=== PATIENT | male | born 1935 | race Two or more races ===

== ENCOUNTER 2021-08-15 16:14 | Inpatient (IN) | payer OTHER ==
[~2021-08-15] VITALS: Ht 170.2 cm; Wt 68.7 kg
[2021-08-15] MEDS ORDERED: ACETAMINOPHEN 500 MG TAB PO ONE (17:15)
[2021-08-15 17:23] LABS: Hematocrit 29.1 % (41.0-53.0); Hemoglobin 9.9 g/dL (13.5-17.5); Mean Corpuscular Volume 88.4 fL (80.0-100.0); Red Cell Distribution Width 15.9 % (11.8-14.3); White Blood Cell 5.9 10^3/uL (4.4-10.8)
[2021-08-15 17:29] LABS: Basophils % (manual) 0 (0.0-2.0); Blast Cells 0; Eosinophils % (manual) 0 (0-7); Myelocytes % 0; Promyelocytes % 0
[2021-08-15 17:37] LABS: INR 1.57 (0.9-1.15); Partial Thromboplastin Time 49.3 sec (23.6-33.0)
[2021-08-15 17:52] LABS: Albumin 2.6 g/dL (3.4-5.0); Calcium 8.6 mg/dL (8.5-10.1); Potassium 4.5 mmol/L (3.5-5.1)
[2021-08-15 17:55] LABS: BUN/Creatinine Ratio 26.7; Magnesium 2.2 mg/dL (1.6-2.6)
[2021-08-15 17:59] LABS: Bilirubin, Total 0.4 mg/dL (0.2-1.0); Total Protein 6.5 g/dL (6.4-8.2)
[2021-08-15] MEDS ORDERED: MORPHINE SULFATE INJECTION 2 MG/ML SYRG IV PRN ×2 (18:15→22:15)
[2021-08-15] MEDS ORDERED: NITROGLYCERIN 0.4 MG SL TAB SL PRN (18:15)
[2021-08-15 19:03] LABS: Band Neutrophils % (manual) 3; Lymphocytes % (manual) 30 (10.0-50.0); Metamyelocytes % 1; Monocytes % (manual) 8 (0-12); Reactive Lymphocytes 10
[2021-08-15] MEDS ORDERED: PANTOPRAZOLE 40 MG/10 ML VIAL INJ IV ONE (22:15)
[2021-08-15] MEDS ORDERED: TEMAZEPAM 15 MG CAP PO PRN (22:15)
[2021-08-15] MEDS ORDERED: DOCUSATE SOD 100 MG CAP PO PRN (22:15)
[2021-08-15] MEDS ORDERED: ONDANSETRON HCL 4 MG/2 ML VIAL IV PRN (22:15)
[2021-08-15] MEDS ORDERED: ACETAMINOPHEN 325 MG TAB PO PRN (22:15)
[2021-08-15] MEDS ORDERED: cefTRIAXone 1GM/50ML D5W 50 ML IV ONE (22:15)
[2021-08-15] MEDS ORDERED: hydrALAZINE HCL 20 MG/ML VL IV PRN (22:15)
[2021-08-15] MEDS ORDERED: HYDROcodone-ACET 5/325MG TAB PO PRN (22:15)
[2021-08-15] MEDS ORDERED: IOHEXOL 350 MG/ML 100ML IJ ONE (22:25)
[2021-08-15] MEDS: SODIUM CHLORIDE 0.9% 1,000 ML IV SCH (23:00)
[2021-08-16 00:30] VITALS: BP 107/67
[2021-08-16 05:00] VITALS: BP 132/57
[2021-08-16 08:17] LABS: Hematocrit 29.6 % (41.0-53.0); Mean Corpuscular Hemoglobin 29.9 pg (28.0-32.0); Mean Corpuscular Hgb Conc. 33.9 g/dL (32.0-36.0); Mean Corpuscular Volume 88.2 fL (80.0-100.0); Red Blood Cells 3.35 10^6/uL (4.5-5.90); Red Cell Distribution Width 16.6 % (11.8-14.3); White Blood Cell 4.3 10^3/uL (4.4-10.8)
[2021-08-16 08:36] VITALS: BP 133/63
[2021-08-16 08:44] LABS: INR 1.54 (0.9-1.15)
[2021-08-16 08:48] LABS: Basophils % (manual) 0 (0.0-2.0); Blast Cells 0; Eosinophils % (manual) 0 (0-7); Metamyelocytes % 0; Myelocytes % 0; Promyelocytes % 0
[2021-08-16 09:06] LABS: Albumin 2.4 g/dL (3.4-5.0); BUN/Creatinine Ratio 25.7; Bilirubin, Total 0.5 mg/dL (0.2-1.0); CRP High Sensitivity 12.3 mg/dL (< 0.3); Calcium 8.2 mg/dL (8.5-10.1); Magnesium 2.2 mg/dL (1.6-2.6); Phosphorus 2.3 mg/dL (2.5-4.90); Total Protein 6.6 g/dL (6.4-8.2); Uric Acid 4.4 mg/dL (3.5-7.2)
[2021-08-16 09:12] LABS: Thyroid Stimulating Hormone 0.41 uIU/mL (0.358-3.74)
[2021-08-16 09:26] LABS: Urine Bacteria NONE SEEN /hpf (None Seen); Urine Blood 1+ /uL (Negative); Urine Mucus FEW (None Seen); Urine WBC <1 /hpf (0 - 3)
[2021-08-16 09:31] LABS: Alcohol, Urine < 3.0 mg/dL (0-10); Amphetamine Screen, Urine NEGATIVE (NEGATIVE); Barbiturate Scree,Urine NEGATIVE (NEGATIVE); Benzodiazephine Screen, Urine NEGATIVE (NEGATIVE); Cannabinoid Screen, Urine NEGATIVE (NEGATIVE); Cocaine Screen, Urine NEGATIVE (NEGATIVE); Opiate Scree,Urine NEGATIVE (NEGATIVE); Phencyclidine Screen, Urine NEGATIVE (NEGATIVE); Protein, Urine 47.5 mg/dL (0.0-11.9)
[2021-08-16] MEDS: metroNIDAZOLE 500MG/100ML 100 ML IV SCH ×2 (09:39→17:21)
[2021-08-16] MEDS ORDERED: PANTOPRAZOLE 40 MG/10 ML VIAL INJ IV SCH (10:00)
[2021-08-16] MEDS ORDERED: ENOXAPARIN SOD 40 MG/0.4 ML SYRINGE SC SCH (10:00)
[2021-08-16 10:58] LABS: Band Neutrophils % (manual) 31; Lymphocytes % (manual) 26 (10.0-50.0); Monocytes % (manual) 14 (0-12); Reactive Lymphocytes 5
[2021-08-16 11:54] VITALS: BP 133/59
[2021-08-16] MEDS: SODIUM CHLORIDE 0.9% 1,000 ML IV SCH (14:55)
[2021-08-16 15:24] LABS: Magnesium 2.1 mg/dL (1.6-2.6); Phosphorus 1.9 mg/dL (2.5-4.90)
[2021-08-16 17:00] VITALS: BP 106/66
[2021-08-16] MEDS: cefTRIAXone 1GM/50ML D5W 50 ML IV SCH (21:21)
[2021-08-16 22:00] VITALS: BP 95/40
[2021-08-17] MEDS: metroNIDAZOLE 500MG/100ML 100 ML IV SCH ×3 (01:45→16:29)
[2021-08-17 05:00] VITALS: BP 140/64
[2021-08-17] MEDS: fentaNYL CITRATE 100 MCG/2 ML VL ONE ×2 (08:15→08:20)
[2021-08-17] MEDS: MIDAZOLAM HCL 5 MG/ML-1ML VIAL ONE ×2 (08:15→08:22)
[2021-08-17 08:30] VITALS: BP 130/59
[2021-08-17] MEDS ORDERED: SODIUM CHLORIDE LOCK 10 ML ONE (09:04)
[2021-08-17] MEDS ORDERED: LIDOCAINE VISCOUS 2% 15ML UD ONE (09:04)
[2021-08-17] MEDS ORDERED: diphenhdrAMINE HCL 50 MG/1 ML VL ONE (09:05)
[2021-08-17] MEDS: SODIUM CHLORIDE 0.9% 1,000 ML IV SCH (09:20)
[2021-08-17] MEDS: PANTOPRAZOLE 40 MG TAB PO SCH ×2 (09:21→22:09)
[2021-08-17] MEDS: SUCRALFATE 1 GM/10 ML ORAL SUSP PO SCH ×3 (11:41→22:08)
[2021-08-17 12:30] VITALS: BP 169/55
[2021-08-17 16:30] VITALS: BP 119/55
[2021-08-17 22:00] VITALS: BP 129/59
[2021-08-17] MEDS: cefTRIAXone 1GM/50ML D5W 50 ML IV SCH (22:08)
[2021-08-18] MEDS: SODIUM CHLORIDE 0.9% 1,000 ML IV SCH (00:15)
[2021-08-18] MEDS: metroNIDAZOLE 500MG/100ML 100 ML IV SCH (00:25)
[2021-08-18 05:00] VITALS: BP 120/45
[2021-08-18] MEDS: SUCRALFATE 1 GM/10 ML ORAL SUSP PO SCH ×2 (05:56→11:30)
[2021-08-18 08:37] VITALS: BP 124/65
[2021-08-18] MEDS: PANTOPRAZOLE 40 MG TAB PO SCH (10:00)
[2021-08-18 10:15] VITALS: BP 136/67
[2021-08-18 13:00] VITALS: BP 127/66
[2021-08-18] MEDS ORDERED: SUCR1SUS10 PO (13:09)
[2021-08-18] MEDS ORDERED: PANT40T PO (13:09)
[2021-08-18 14:28] VITALS: BP 127/66
== END 2021-08-18 15:15 | disposition home health service (06) | DRG 392 ==
LOC: ER 16:14 → TELE-EAST 18:12 → EAST 08-17 20:52
PROVIDERS: ADMIT Hospitalist; ATTEND Internal Medicine
PROC: 0DB68ZX Excision of Stomach, Via Natural or Artificial Opening Endoscopic, Diagnostic (ICD-10-PCS; 2021-08-17)
PROC: 0DB98ZX Excision of Duodenum, Via Natural or Artificial Opening Endoscopic, Diagnostic (ICD-10-PCS; principal; 2021-08-17 08:08)
DX: K29.70 Gastritis, unspecified, without bleeding (principal); D68.4 Acquired coagulation factor deficiency; I16.9 Hypertensive crisis, unspecified; K25.9 Gastric ulcer, unspecified as acute or chronic, without hemorrhage or perforation; K26.9 Duodenal ulcer, unspecified as acute or chronic, without hemorrhage or perforation; K29.80 Duodenitis without bleeding; D64.9 Anemia, unspecified; D69.6 Thrombocytopenia, unspecified; E78.5 Hyperlipidemia, unspecified; K57.90 Diverticulosis of intestine, part unspecified, without perforation or abscess without bleeding; M19.90 Unspecified osteoarthritis, unspecified site; R74.01 Elevation of levels of liver transaminase levels; R79.89 Other specified abnormal findings of blood chemistry; K21.9 Gastro-esophageal reflux disease without esophagitis; K44.9 Diaphragmatic hernia without obstruction or gangrene; Z20.822 Contact with and (suspected) exposure to COVID-19; Z79.1 Long term (current) use of non-steroidal anti-inflammatories (NSAID); Z85.46 Personal history of malignant neoplasm of prostate
CPT/HCPCS: 36415; 43239; 71045; 71260; 74177; 80053; 80061; 80307; 81001; 82550; 82728; 83036; 83605; 83615; 83690; 83735; 83880; 84100; 84156; 84443; 84484; 84550; 85007; 85027; 85379; 85610; 85652; 85730; 86141; 87040; 87804; 93005; 93306; 93970; 99291; C9113; G0378; J0696; J2250; J3490